=== PATIENT | female | born 2000 | race Caucasian/White ===

== ENCOUNTER 2022-11-17 16:15 | Outpatient (CLI) | payer OTHER ==
[2022-11-17 20:45] LABS: ESTIMATED AVERAGE GLUCOSE 97 mg/dL (70-100)
[2022-11-17 20:51] LABS: BASOPHILS % (AUTO) 0.3 %; EOSINOPHILS # (AUTO) 0.2 10^3/uL (0.0-0.7); EOSINOPHILS % (AUTO) 1.7 %; HCT - HEMATOCRIT 41.9 % (37.0-47.0); HGB - HEMOGLOBIN 13.5 g/dL (12.0-16.0); LYMPHOCYTES # (AUTO) 2.5 10^3/uL (1.5-3.5); LYMPHOCYTES % (AUTO) 20.5 %; MEAN CORPUSCULAR HEMOGLOBIN 30.6 pg (27.0-31.0); MEAN CORPUSCULAR HGB CONC 32.2 g/dL (32.0-36.0); MEAN PLATELET VOLUME 11.1 fL (7.9-10.8); MONOCYTES # (AUTO) 0.9 10^3/uL (0.0-1.0); MONOCYTES % (AUTO) 7.2 %; NEUTROPHILS # (AUTO) 8.6 10^3/uL (1.5-6.6); NEUTROPHILS % (AUTO) 69.8 %; PLT - PLATELET COUNT 292 10^3/uL (130-450); RED BLOOD COUNT 4.41 10^6/uL (4.20-5.40); RED CELL DISTRIBUTION WIDTH 12.4 % (12.0-15.0); WHITE BLOOD COUNT 12.4 x10^3/uL (4.8-10.8)
[2022-11-17 20:59] LABS: ALBUMIN 4.1 g/dL (3.2-5.5); ALBUMIN/GLOBULIN RATIO 1.3 (1.0-2.2); BILIRUBIN,TOTAL 0.3 mg/dL (0.2-1.0); CALCIUM 9.3 mg/dL (8.5-10.3); CREATININE 0.6 mg/dL (0.6-1.3); CRP - C-REACTIVE PROTEIN 3.3 mg/dL (<0.5); POTASSIUM 4.1 mmol/L (3.5-4.5); TOTAL PROTEIN 7.3 g/dL (6.4-8.9)
== END 2022-11-17 16:30 | disposition home or self-care (01) ==
LOC: LAB.N 16:15
PROVIDERS: ATTEND Registered Nurse
DX: M54.50 Low back pain, unspecified (principal); R10.11 Right upper quadrant pain; R10.9 Unspecified abdominal pain
CPT/HCPCS: 36415; 80053; 83036; 83690; 85025; 86140

== ENCOUNTER 2022-11-19 08:00 | Outpatient (CLI) | payer OTHER | END 2022-11-19 23:59 | disposition home or self-care (01) | LOC: LAB 08:00 | PROVIDERS: ATTEND Physician Assistant Medical | DX: M54.50 Low back pain, unspecified (principal) | CPT/HCPCS: 87086 ==

== ENCOUNTER 2023-01-19 15:53 | Emergency (ER) | payer OTHER ==
[2023-01-19 16:27] LABS: BASOPHILS % (AUTO) 0.3 %; EOSINOPHILS # (AUTO) 0.2 10^3/uL (0.0-0.7); EOSINOPHILS % (AUTO) 1.3 %; HCT - HEMATOCRIT 42.7 % (37.0-47.0); HGB - HEMOGLOBIN 13.9 g/dL (12.0-16.0); LYMPHOCYTES # (AUTO) 3.1 10^3/uL (1.5-3.5); LYMPHOCYTES % (AUTO) 21.6 %; MEAN CORPUSCULAR HEMOGLOBIN 30.4 pg (27.0-31.0); MEAN CORPUSCULAR HGB CONC 32.6 g/dL (32.0-36.0); MEAN CORPUSCULAR VOLUME 93.4 fL (81.0-99.0); MEAN PLATELET VOLUME 10.4 fL (7.9-10.8); MONOCYTES # (AUTO) 1.1 10^3/uL (0.0-1.0); MONOCYTES % (AUTO) 7.7 %; NEUTROPHILS # (AUTO) 9.8 10^3/uL (1.5-6.6); NEUTROPHILS % (AUTO) 68.6 %; PLT - PLATELET COUNT 300 10^3/uL (130-450); RED BLOOD COUNT 4.57 10^6/uL (4.20-5.40); RED CELL DISTRIBUTION WIDTH 12.3 % (12.0-15.0); WHITE BLOOD COUNT 14.3 x10^3/uL (4.8-10.8)
[2023-01-19 16:42] LABS: ALBUMIN 4.3 g/dL (3.2-5.5); ALBUMIN/GLOBULIN RATIO 1.5 (1.0-2.2); BILIRUBIN,TOTAL 0.3 mg/dL (0.2-1.0); CALCIUM 9.5 mg/dL (8.5-10.3); CREATININE 0.6 mg/dL (0.6-1.3); POTASSIUM 3.7 mmol/L (3.5-4.5); TOTAL PROTEIN 7.2 g/dL (6.4-8.9)
[2023-01-19 17:03] LABS: BILIRUBIN,URINE NEGATIVE (NEGATIVE); GLUCOSE, URINE (UA) NEGATIVE (NEGATIVE); KETONES,URINE (UA) NEGATIVE (NEGATIVE); LEUKOCYTE ESTERASE, URINE NEGATIVE (NEGATIVE); NITRITE,URINE NEGATIVE (NEGATIVE); OCCULT BLOOD,URINE NEGATIVE (NEGATIVE); PROTEIN,URINE NEGATIVE (NEGATIVE); UROBILINOGEN,URINE 0.2 (NORMAL) E.U./dL (NORMAL)
[2023-01-19 17:06] LABS: HCG UR QUAL NEGATIVE
[2023-01-19 17:06] LABS: CLARITY,URINE CLEAR (CLEAR)
--- NOTE | 2023-01-19 17:30 | ED Physician Documentation ---
History of Present Illness - Stated complaint Stated Complaint: - Chief complaint Chief Complaint: Abd Pain - History obtained from History obtained from: Patient - History of Present Illness Timing: Today Pain level max: 6 Pain level now: 5 - Additonal information Additional information: Patient is a 22-year-old female who presents to the emergency department with 2 to 3 days of right lower quadrant abdominal pain. She states she does not have any dysuria but when she flexes the muscles in her abdomen to strain to urinate or defecate that causes pain in the right lower quadrant. No nausea or vomiting. No fevers. No chills. Had COVID 1 month ago. Denies any possibility of . Has irregular menses. Review of Systems Constitutional: denies: Fever, Chills GI: denies: Nausea, Vomiting, Diarrhea : denies: Now EGA Skin: denies: Rash Musculoskeletal: denies: Neck pain, Back pain Neurologic: denies: Headache PD PAST MEDICAL HISTORY - Past Medical History Past Medical History: No - Past Surgical History Past Surgical History: No - Present Medications Home Medications: Ambulatory Orders Medication Instructions Recorded Confirmed HYDROcod/ACETAM 5/325 [[place] 5/325] 1 - 2 ea PO Q6H PRN #14 tablet 01/19/23 - Allergies Allergies/Adverse Reactions: Allergies Allergy/AdvReac Type Severity Reaction Status Date / Time No Known Drug Allergies Allergy Verified 01/19/23 16:12 - Social History Does the pt smoke?: No Smoking Status: Never smoker Does the pt drink ETOH?: Yes Does the pt have substance abuse?: No - Immunizations Immunizations are current?: Yes PD ED PE NORMAL - Vitals Vital signs reviewed: Yes - General General: Alert and oriented X 3, No acute distress - HEENT HEENT: PERRL, Moist mucous membranes - Neck Neck: Supple, no meningeal sign - Cardiac Cardiac: RRR, Strong equal pulses - Respiratory Respiratory: No respiratory distress, Clear bilaterally - Abdomen Abdomen: Soft, Non distended, Other (Tender to palpation right lower quadrant without peritoneal signs. Mild tenderness to McBurney's point. No rebound. No guarding. Negative psoas. Negative heeltap.) - Back Back: No spinal TTP - Derm Derm: Warm and dry - Extremities Extremities: No edema, No calf tenderness / cord - Neuro Neuro: Alert and oriented X 3 - Psych Psych: Normal mood, Normal affect Results - Vitals Vitals: Vital Signs - 24 hr 01/19/23 01/19/23 01/19/23 16:02 18:43 20:56 Temperature 37.0 C Heart Rate 68 71 78 Respiratory 17 16 18 Rate Blood Pressure 134/85 H 118/74 130/79 O2 Saturation 100 99 98 Oxygen O2 Source Room air - Labs Labs: Laboratory Tests 01/19/23 01/19/23 01/19/23 16:16 16:18 16:21 WBC 14.3 H RBC 4.57 Hgb 13.9 Hct 42.7 MCV 93.4 MCH 30.4 MCHC 32.6 RDW 12.3 Plt Count 300 MPV 10.4 Neut # (Auto) 9.8 H Lymph # (Auto) 3.1 Young # (Auto) 1.1 H Eos # (Auto) 0.2 Baso # (Auto) 0.0 Absolute Nucleated RBC 0.00 Nucleated RBC % 0.0 Sodium Potassium Chloride Carbon Dioxide Anion Gap BUN Creatinine Estimated GFR (MDRD) Glucose Calcium Total Bilirubin AST ALT Alkaline Phosphatase Total Protein Albumin Globulin Albumin/Globulin Ratio Lipase Urine Color YELLOW Urine Clarity CLEAR Urine pH 6.0 Ur Specific [place] <=1.005 Urine Protein NEGATIVE Urine Glucose (UA) NEGATIVE Urine Ketones NEGATIVE Urine Occult Blood NEGATIVE Urine Nitrite NEGATIVE Urine Bilirubin NEGATIVE Urine Urobilinogen 0.2 (NORMAL) Ur Leukocyte Esterase NEGATIVE Ur Microscopic Review NOT INDICATED Urine Culture Comments NOT INDICATED Urine HCG, Qual NEGATIVE 01/19/23 16:21 WBC RBC Hgb Hct MCV MCH MCHC RDW Plt Count MPV Neut # (Auto) Lymph # (Auto) Young # (Auto) Eos # (Auto) Baso # (Auto) Absolute Nucleated RBC Nucleated RBC % Sodium 138 Potassium 3.7 Chloride 104 Carbon Dioxide 29 Anion Gap 5.0 L BUN 10 Creatinine 0.6 Estimated GFR (MDRD) 125 Glucose 83 Calcium 9.5 Total Bilirubin 0.3 AST 16 ALT 14 Alkaline Phosphatase 98 Total Protein 7.2 Albumin 4.3 Globulin 2.9 Albumin/Globulin Ratio 1.5 Lipase 14 Urine Color Urine Clarity Urine pH Ur Specific [place] Urine Protein Urine Glucose (UA) Urine Ketones Urine Occult Blood Urine Nitrite Urine Bilirubin Urine Urobilinogen Ur Leukocyte Esterase Ur Microscopic Review Urine Culture Comments Urine HCG, Qual - Rads (name of study) CT abdomen pelvis Relevant Findings:: Final report received, See rad report Pelvic ultrasound Relevant Findings:: Final report received, See rad report PD Medical Decision Making - ED course Complexity details: reviewed results, re-evaluated patient, considered differential, d/w patient, d/w strategy planning consultant ED course: 22-year-old female with right-sided abdominal/pelvic pain. She has a 5 cm right-sided ovarian cyst. Ultrasound does not show any evidence of torsion. Pain well controlled in the emergency department. I did discuss the case with Dr. Webber, gynecology, recommends follow-up in the office and repeat ultrasound. Torsion precautions were given at bedside. We will prescribe pain medication for home. Patient counseled regarding signs and symptoms for which I believe and urgent re-evaluation would be necessary. Patient with good u nderstanding of and agreement to plan and is comfortable going home at this time This document was made in part using voice recognition software. While efforts are made to proofread this document, sound alike and grammatical errors may occur. Departure - Departure Disposition: Home, Self Care Clinical Impression: Ovarian cyst Qualifiers: Laterality: right Qualified Code(s): N83.201 - Unspecified ovarian cyst, right side Abdominal pain Qualifiers: Abdominal location: unspecified location Qualified Code(s): R10.9 - Unspecified abdominal pain Condition: Good Instructions: ED Abdominal Pain Female Non-Specific Abdominal Pain, ED Cyst Ovarian Follow-Up: your,doctor in 1 week [Other] [facility] [Provider Group] Prescriptions: HYDROcod/ACETAM 5/325 [[place] 5/325] 1 - 2 ea PO Q6H PRN #14 tablet PRN Reason: Pain Comments: Please follow-up with your doctor or gynecology for further care. You have a right-sided ovarian cyst, approximately 5 cm. It is recommended that you have a repeat ultrasound in 3 to 4 weeks to ensure resolution of the cyst. If you develop increasing pain, vomiting or other symptoms, please return for repeat evaluation. Your prescription was sent to [facility] in [place]. I am prescribing a short course of narcotic pain medication for you. These are potentially dangerous and addictive medications that should be used carefully. These medications may constipate you. Take an qwqd-cea-etxkmoe stool softener (docusate) twice daily with plenty of water while taking these medications. If you go 24 hours without a bowel movement, take [id number]-aoxehwj miralax, per package instructions. Do not drink or drive while taking these medications. If you received narcotic or sedating medications while in the emergency department, do not drive for 24 hours. Store this medication in a safe, secure place and out of reach of children. It is a violation of federal law to give or sell this medication to another person or to use in a manner other than prescribed. The ED will not refill narcotic prescriptions, including prescriptions lost or stolen. To dispose of unwanted medications: 1. [facility] at [address] in [place] has a medication drop box. They accept prescription medications (in pill form) Monday through Monday 9:00 a.m. to 5:00 p.m. 2. [facility] [employer] accepts prescription medications (in pill form only) for disposal year round. Call for more information. 3. Contact the [facility] for the next [facility] sponsored prescription drug collection event. , [phone], or [phone]; Forms: PCP List Discharge Date/Time: 01/19/23 20:55
[2023-01-19] MEDS ORDERED: iohexoL-300 100 ML VIAL IVP ONE (18:51)
--- NOTE | 2023-01-19 19:43 | CT Report ---
PROCEDURE: ABDOMEN/PELVIS W INDICATIONS: RLQ abd pain CONTRAST: omni 300 100ml TECHNIQUE: After the administration of intravenous contrast, 5 mm thick sections acquired from the diaphragms to the symphysis. 5 mm thick coronal and sagittal reformats were acquired. For radiation dose reducti on, the following was used: automated exposure control, adjustment of mA and/or kV according to roberto ent size. COMPARISON: None FINDINGS: Image quality: Excellent. Lung bases and heart: Unremarkable. Liver: No solid mass. Gallbladder and biliary tree: Spleen: No splenomegaly. Pancreas: No pancreatic ductal dilation. Adrenals: No adrenal nodule. Kidneys and ureters: No hydronephrosis. No renal cystic lesion which requires follow up. No solid mas s. Bowel and peritoneum: No bowel distension. No pathologic free fluid. Normal appendix Lymph nodes: No central or retroperitoneal adenopathy. Vessels: No infrarenal aortic aneurysm. PELVIS Reproductive organs: Prominent cystic lesion in the right ovary/adnexa measuring up to 4.9 cm. No sig nificant surrounding inflammatory changes. Trace amount of pelvic free fluid likely physiologic but p ossibly reactive in etiology. Bladder: No abnormal wall thickening, accounting for underdistension. Pelvic lymph nodes: No pelvic adenopathy by size criteria. Bones: No aggressive osseous abnormality. Other: No significant ventral or inguinal hernia. IMPRESSION: Prominent right ovarian/adnexal cysts measuring up to 4.9 cm without significant surrounding inflamma tory changes. Consider further evaluation with pelvic ultrasound given right lower quadrant abdominal pain. The appendix is normal. Otherwise, no acute abnormalities identified in the abdomen or pelvis. Reviewed by: Carlos Davis MD on 01/19/2023 7:42 PM PDT Approved by: Carlos Davis MD on 01/19/2023 7:42 PM PDT Station ID: [id number]
[2023-01-19] MEDS ORDERED: HYDROcod/ACETAM 5/325 MG TABLET PO STA (20:38)
[2023-01-19] MEDS ORDERED: HYDROcod/ACET 5/325 Prepack 4 PO STA (20:38)
--- NOTE | 2023-01-19 20:41 | Ultrasound Report ---
PROCEDURE: Pelvic w/Doppler Complete INDICATIONS: 5 cm right-sided ovarian cyst TECHNIQUE: Real-time scanning was performed of the pelvic organs, with image documentation. COMPARISON: None. FINDINGS: Uterus: Uterus is anteverted and normal in size at 7.0 x 3.2 x 3.6 cm. The myometrium is homogeneou s. The endometrium measures 15 mm in combined thickness. Ovaries: The right ovary measures 5.6 x 3.9 x 5.1 cm, with a calculated ovarian volume of 58 cc. Th e left ovary measures 2.4 x 1.5 x 2.6 cm, with a calculated ovarian volume of 5 cc. A simple appeari ng cyst is present in the right ovary measuring 4.2 x 3.1 x 4.5 cm. Blood flow is visualized within b oth ovaries by Doppler imaging. Other: No pathologic free abdominal or pelvic fluid. IMPRESSION: 1. A 4.5 cm simple appearing cyst is present in the right ovary. 2. Unremarkable sonographic appearance of the left ovary. Reviewed by: Darshan Berger MD on 01/19/2023 8:40 PM PDT Approved by: Darshan Berger MD on 01/19/2023 8:40 PM PDT Station ID: [id number]
[2023-01-19 21:04] VITALS: BP 130/79; O2SAT 98
== END 2023-01-19 20:55 | disposition home or self-care (01) ==
LOC: ED 15:53
DX: N83.201 Unspecified ovarian cyst, right side (principal)
CPT/HCPCS: 36415; 74177; 76856; 80053; 81003; 81025; 83690; 85025; 93975; 99284; A9270; Q9967; 81001; 87086

== ENCOUNTER 2023-03-31 09:41 | Outpatient (CLI) | payer OTHER ==
--- NOTE | 2023-03-31 19:51 | Ultrasound Report ---
PROCEDURE: Pelvic w/Transvaginal INDICATIONS: OVARIAN CYST TECHNIQUE: Real-time scanning was performed of the pelvic organs, with image documentation. Additional endovagi nal scanning was necessary due to incomplete visualization of the adnexal and endometrial structures by transabdominal scanning. COMPARISON: Pelvic ultrasound 01/19/2023. CT abdomen pelvis 01/19/2023. FINDINGS: Uterus: Uterus is anteverted and normal in size at 7.7 x 3.7 x 3.3 cm. The myometrium is homogeneou s. The endometrium measures 9 mm in combined thickness. No fibroids seen. Ovaries: The right ovary measures 2.1 x 1.8 x 1.7 cm, with a calculated ovarian volume of 3 cc. The left ovary measures 3.6 x 2.7 x 2.3 cm, with a calculated ovarian volume of 11.5 cc. The ovaries lewis ve a normal sonographic appearance. Less than 12 follicles can be seen in each ovary. Dominant left ovarian follicle measuring 1.8 cm right ovarian cyst is resolved. No adnexal masses are seen. No cyst ic lesions measuring greater than 3 cm. Other: Fluid in the pelvic cul-de-sac. IMPRESSION: 1. Right ovarian cyst is resolved. 2. Endometrium measures 9 mm. Reviewed by: Jose L Cummings MD on 03/31/2023 7:50 PM PST Approved by: Jose L Cummings MD on 03/31/2023 7:50 PM PST Station ID: [id number]
== END 2023-03-31 09:42 | disposition home or self-care (01) ==
LOC: DI 09:41
PROVIDERS: ATTEND Obstetrics & Gynecology
DX: N83.291 Other ovarian cyst, right side (principal)

== ENCOUNTER 2023-10-31 08:00 | Outpatient (CLI) | payer OTHER ==
[2023-10-31 16:01] LABS: BILIRUBIN,URINE NEGATIVE (NEGATIVE); GLUCOSE, URINE (UA) NEGATIVE (NEGATIVE); KETONES,URINE (UA) NEGATIVE (NEGATIVE); LEUKOCYTE ESTERASE, URINE SMALL (NEGATIVE); NITRITE,URINE NEGATIVE (NEGATIVE); OCCULT BLOOD,URINE NEGATIVE (NEGATIVE); PROTEIN,URINE NEGATIVE (NEGATIVE); UROBILINOGEN,URINE 0.2 (NORMAL) E.U./dL (NORMAL)
[2023-10-31 16:03] LABS: CLARITY,URINE SL. CLOUDY (CLEAR)
[2023-10-31 16:30] LABS: BACTERIA,URINE Moderate /HPF (None Seen); RBC,URINE 0-5 /HPF (0-5); SQUAMOUS EPITHELIAL CELL,UR MANY Squamous (<= Few)
[2023-10-31 16:31] LABS: MUCUS,URINE Moderate Strands
== END 2023-10-31 23:59 | disposition home or self-care (01) ==
LOC: LAB 08:00
PROVIDERS: ATTEND Obstetrics & Gynecology
DX: Z34.90 Encounter for supervision of normal pregnancy, unspecified, unspecified trimester (principal)
CPT/HCPCS: 81001; 81003; 87086

== ENCOUNTER 2023-11-10 12:15 | Outpatient (CLI) | payer OTHER ==
[2023-11-10 18:13] LABS: BASOPHILS % (AUTO) 0.3 %; EOSINOPHILS # (AUTO) 0.1 10^3/uL (0.0-0.7); EOSINOPHILS % (AUTO) 0.9 %; HGB - HEMOGLOBIN 13.4 g/dL (12.0-16.0); LYMPHOCYTES # (AUTO) 2.4 10^3/uL (1.5-3.5); LYMPHOCYTES % (AUTO) 20.8 %; MEAN CORPUSCULAR HEMOGLOBIN 30.3 pg (27.0-31.0); MEAN CORPUSCULAR HGB CONC 31.9 g/dL (32.0-36.0); MEAN PLATELET VOLUME 11.5 fL (7.9-10.8); MONOCYTES # (AUTO) 0.7 10^3/uL (0.0-1.0); MONOCYTES % (AUTO) 5.6 %; NEUTROPHILS # (AUTO) 8.4 10^3/uL (1.5-6.6); NEUTROPHILS % (AUTO) 72.1 %; PLT - PLATELET COUNT 263 10^3/uL (130-450); RED BLOOD COUNT 4.42 10^6/uL (4.20-5.40); WHITE BLOOD COUNT 11.7 x10^3/uL (4.8-10.8)
[2023-11-12 06:08] LABS: HBsAG SCREEN Negative (Negative); HIV SCREEN 4TH GENERATION Non Reactive (Non Reactive)
[2023-11-12 09:08] LABS: VARICELLA-ZOSTER AB IGG 190 index (Immune >165)
[2023-11-14 02:08] LABS: HCV AB Non Reactive (Non Reactive)
[2023-11-14 03:10] LABS: RPR Non Reactive (Non Reactive)
== END 2023-11-10 12:16 | disposition home or self-care (01) ==
LOC: LAB.N 12:15
PROVIDERS: ATTEND Obstetrics & Gynecology
DX: Z34.90 Encounter for supervision of normal pregnancy, unspecified, unspecified trimester (principal)
CPT/HCPCS: 36415; 85025; 86592; 86762; 86787; 86803; 86850; 86900; 86901; 87340; 87389

== ENCOUNTER 2023-11-22 12:24 | Emergency (ER) | payer OTHER ==
--- NOTE | 2023-11-22 12:33 | ED Physician Documentation ---
History of Present Illness - Stated complaint Stated Complaint: VOMITING,NAUSEA,HOLL[place] PD PAST MEDICAL HISTORY - Past Surgical History Past Surgical History: No - Present Medications Home Medications: Ambulatory Orders Medication Instructions Recorded Confirmed HYDROcod/ACETAM 5/325 [[place] 5/325] 1 - 2 ea PO Q6H PRN #14 tablet 01/19/23 - Allergies Allergies/Adverse Reactions: Allergies Allergy/AdvReac Type Severity Reaction Status Date / Time No Known Drug Allergies Allergy Verified 01/19/23 16:12 - Social History Does the pt smoke?: No Smoking Status: Never smoker Does the pt drink ETOH?: Yes Does the pt have substance abuse?: No - Immunizations Immunizations are current?: Yes Results - Vitals Vitals: Oxygen O2 Source Room air
--- NOTE | 2023-11-22 12:59 | ED Physician Documentation ---
History of Present Illness - Stated complaint Stated Complaint: VOMITING,NAUSEA,HO[place] - Chief complaint Chief Complaint: Abd Pain - History obtained from History obtained from: Patient - Additonal information Additional information: G1 at 10 weeks has had problems with nausea throughout this . She has been on B6. Vomiting since last night with no significant abdominal pain, no diarrhea, and no cramping, bleeding, nor fluid loss. PD PAST MEDICAL HISTORY - Past Medical History Past Medical History: No - Past Surgical History Past Surgical History: No - Present Medications Home Medications: Ambulatory Orders Medication Instructions Recorded Confirmed HYDROcod/ACETAM 5/325 [[place] 5/325] 1 - 2 ea PO Q6H PRN #14 tablet 01/19/23 Metoclopramide [Reglan] 10 mg PO Q6H PRN #20 tablet 11/22/23 - Allergies Allergies/Adverse Reactions: Allergies Allergy/AdvReac Type Severity Reaction Status Date / Time No Known Drug Allergies Allergy Verified 11/22/23 12:43 - Social History Does the pt smoke?: No Smoking Status: Never smoker Does the pt drink ETOH?: No Does the pt have substance abuse?: No - Immunizations Immunizations are current?: Yes - POLST Patient has POLST: No PD ED PE NORMAL - Vitals Vital signs reviewed: Yes - General General: Alert and oriented X 3, No acute distress - Abdomen Abdomen: Normal bowel sounds, Soft, Other (Bedside ultrasound shows single live intrauterine but some obscuration due to overlying bowel gas so could not check heart tones. There was a motion though.) - Neuro Neuro: Alert and oriented X 3 Results - Vitals Vitals: Vital Signs - 24 hr 11/22/23 12:34 Temperature 36.7 C Heart Rate 96 Respiratory 16 Rate Blood Pressure 133/85 H O2 Saturation 100 Oxygen O2 Source Room air - Labs Labs: Laboratory Tests 11/22/23 13:10 Sodium 135 Potassium 3.4 L Chloride 102 Carbon Dioxide 26 Anion Gap 7.0 BUN 6 Creatinine 0.5 L Estimated GFR (MDRD) 153 Glucose 93 Calcium 9.6 Total Bilirubin 0.4 AST 13 ALT 13 Alkaline Phosphatase 64 Total Protein 8.2 Albumin 4.4 Globulin 3.8 Albumin/Globulin Ratio 1.2 Lipase < 10 L PD Medical Decision Making - ED course ED course: 23-year-old G1 with vomiting in . Nothing in the history or physical to suggest infectious illness or other cause of vomiting. After the administration of IV fluids and Reglan she felt much better and passed p.o. challenge. CMP was unremarkable. Departure - Departure Disposition: 01 Home, Self Care Clinical Impression: Hyperemesis gravidarum Condition: Stable Instructions: ED Preg Morning Sickness Prescriptions: Metoclopramide [Reglan] 10 mg PO Q6H PRN #20 tablet PRN Reason: nausea or headache Comments: I sent your prescription electronically to the [facility] in [place]. Return anytime if worsening and follow-up with your OB as per routine for further evaluation and treatment. Forms: PCP List
[2023-11-22] MEDS: SODIUM CHLORIDE 0.9% 1,000 ML IV STA ×2 (13:01→13:07)
[2023-11-22] MEDS: METOCLOPRAMIDE 10 MG/2 ML VIAL IVP STA (13:10)
[2023-11-22 13:33] LABS: ALBUMIN 4.4 g/dL (3.2-5.5); ALBUMIN/GLOBULIN RATIO 1.2 (1.0-2.2); ALKALINE PHOSPHATASE 64 IU/L (42-121); ALT ALANINE AMINOTRANSFERASE 13 IU/L (10-60); AST ASPARTATE AMINOTRANSFERASE 13 IU/L (10-42); BILIRUBIN,TOTAL 0.4 mg/dL (0.2-1.0); BUN - BLOOD UREA NITROGEN 6 mg/dL (6-20); CALCIUM 9.6 mg/dL (8.5-10.3); CARBON DIOXIDE - CO2 26 mmol/L (21-32); CHLORIDE 102 mmol/L (101-111); CREATININE 0.5 mg/dL (0.6-1.3); GFR - MDRD 153 (>89); GLUCOSE 93 mg/dL (74-104); POTASSIUM 3.4 mmol/L (3.5-4.5); SODIUM 135 mmol/L (135-145); TOTAL PROTEIN 8.2 g/dL (6.4-8.9)
[2023-11-22 13:34] LABS: LIPASE < 10 U/L (11-82)
[2023-11-22 13:57] LABS: BILIRUBIN,URINE NEGATIVE (NEGATIVE); GLUCOSE, URINE (UA) NEGATIVE (NEGATIVE); KETONES,URINE (UA) 40 mg/dL (NEGATIVE); LEUKOCYTE ESTERASE, URINE SMALL (NEGATIVE); NITRITE,URINE NEGATIVE (NEGATIVE); OCCULT BLOOD,URINE NEGATIVE (NEGATIVE); PH,URINE 6.5 PH (5.0-7.5); PROTEIN,URINE NEGATIVE (NEGATIVE); UROBILINOGEN,URINE 0.2 (NORMAL) E.U./dL (NORMAL)
[2023-11-22 13:59] LABS: CLARITY,URINE SL. CLOUDY (CLEAR)
[2023-11-22 14:05] LABS: BACTERIA,URINE Moderate /HPF (None Seen); RBC,URINE 0-5 /HPF (0-5); SQUAMOUS EPITHELIAL CELL,UR MANY Squamous (<= Few)
[2023-11-22 14:20] VITALS: BP 109/63; O2SAT 99
== END 2023-11-22 14:25 | disposition home or self-care (01) ==
LOC: ED 12:24
DX: O21.0 Mild hyperemesis gravidarum (principal); Z3A.10 10 weeks gestation of pregnancy
CPT/HCPCS: 36415; 80053; 81001; 83690; 96361; 96374; 99283; J2765; 81003; 85025; 87086

== ENCOUNTER 2023-12-08 08:00 | Outpatient (CLI) | payer OTHER ==
[2023-12-08 22:22] LABS: CHLAMYDIA TRACHOMATIS DNA NEGATIVE (NEGATIVE); NEISSERIA GONORRHOEAE DNA NEGATIVE (NEGATIVE); TRICHOMONAS VAGINALIS DNA NEGATIVE (NEGATIVE)
== END 2023-12-08 23:59 | disposition home or self-care (01) ==
LOC: LAB.WC 08:00
PROVIDERS: ATTEND Nurse Practitioner
DX: Z11.3 Encounter for screening for infections with a predominantly sexual mode of transmission (principal)
CPT/HCPCS: 87491; 87591; 87661

== ENCOUNTER 2024-06-04 09:08 | Inpatient (IN) ==
[2024-06-04] MEDS ORDERED: LABETALOL 20 MG/4 ML SYRINGE IVP PRN ×3 (09:15)
[2024-06-04] MEDS ORDERED: CARBOPROST TROMETHAMINE 250 MCG/ML VIAL IM PRN (09:15)
[2024-06-04] MEDS ORDERED: METHYLERGONOVINE 0.2 MG/ML VIAL IM PRN (09:15)
[2024-06-04] MEDS ORDERED: lidocaine 1% 20 ML MDV ID PRN (09:15)
[2024-06-04] MEDS ORDERED: OXYTOCIN 10 UNIT/ML VIAL IM PRN (09:15)
[2024-06-04] MEDS ORDERED: OXYTOCIN/SODIUM CHLORIDE 500 ML IV PRN (09:15)
[2024-06-04] MEDS ORDERED: fentaNYL 100 MCG/2 ML VIAL IVP PRN (09:15)
[2024-06-04] MEDS ORDERED: miSOPROStoL 200 MCG TABLET BC PRN (09:15)
[2024-06-04] MEDS ORDERED: NIFEdipine 10 MG CAPSULE PO PRN (09:15)
[2024-06-04] MEDS ORDERED: hydrALAZINE INJ 20 MG/ML VIAL IVP PRN ×2 (09:15)
[2024-06-04 10:35] LABS: BASOPHILS % (AUTO) 0.3 %; EOSINOPHILS # (AUTO) 0.1 10^3/uL (0.0-0.7); EOSINOPHILS % (AUTO) 0.6 %; HCT - HEMATOCRIT 38.8 % (37.0-47.0); HGB - HEMOGLOBIN 12.7 g/dL (12.0-16.0); LYMPHOCYTES # (AUTO) 2.5 10^3/uL (1.5-3.5); LYMPHOCYTES % (AUTO) 18.3 %; MEAN CORPUSCULAR HEMOGLOBIN 30.6 pg (27.0-31.0); MEAN CORPUSCULAR HGB CONC 32.7 g/dL (32.0-36.0); MEAN CORPUSCULAR VOLUME 93.5 fL (81.0-99.0); MEAN PLATELET VOLUME 12.1 fL (7.9-10.8); MONOCYTES # (AUTO) 0.9 10^3/uL (0.0-1.0); MONOCYTES % (AUTO) 6.2 %; NEUTROPHILS # (AUTO) 10.1 10^3/uL (1.5-6.6); PLT - PLATELET COUNT 195 10^3/uL (130-450); RED BLOOD COUNT 4.15 10^6/uL (4.20-5.40); RED CELL DISTRIBUTION WIDTH 13.2 % (12.0-15.0); WHITE BLOOD COUNT 13.7 x10^3/uL (4.8-10.8)
[2024-06-04 10:48] LABS: CREATININE,URINE 30.8 mg/dL; PROTEIN/CREATININE RATIO,URINE 0.1 (<=0.2)
[2024-06-04 10:50] LABS: ALBUMIN 3.5 g/dL (3.2-5.5); ALBUMIN/GLOBULIN RATIO 1.1 (1.0-2.2); BILIRUBIN,TOTAL 0.3 mg/dL (0.2-1.0); CALCIUM 8.7 mg/dL (8.5-10.3); CREATININE 0.5 mg/dL (0.6-1.3); POTASSIUM 3.7 mmol/L (3.5-4.5); TOTAL PROTEIN 6.7 g/dL (6.4-8.9)
[2024-06-04] MEDS: miSOPROStoL 100 MCG TABLET BC SCH (11:20)
--- NOTE | 2024-06-04 12:08 | HISTORY & PHYSICAL EXAMINATION ---
Admit History Smoking Status: Never smoker Other Maternal History Other Maternal History: HPI: This 24 yo @ 37+5 weeks by LMP and confirmed by 11 week ultrasound. She is here for medical induction of labor for gestational hypertension. LDASA initiated after initial OB visit. Her urine MTP has not been diagnosable for preeclampsia as of the time of her admission. She had understood the ACOG recommendation for IOL at 37 weeks gestation but felt better delaying until 38 weeks as her BP was only intermittently elevated and she had no diagnosis of preeclampsia. She had called me last night with blood pressures >145/90 that were more worrisome to her and desired to move up her IOL. She has never endorsed persistent headache, changes to vision, concerning edema or RUQ. Upon arrival her cervix was unchanged from clinic (1/40%/-3, and vertex with intact membranes). She has been a patient of [facility] care for the duration of her which has remained uncomplicated with the exception of obesity and gestational hypertension. ROS: No Headache, visual changes or right upper quadrant abdominal pain. Denies significant N/V. Denies urinary urgency or dysuria. All other symptoms reviewed and were negative except per HPI. In the event of an emergency, accepts the administration of blood products. Admission BP:130/82 Labs: H&H: 12.7/38.8, PLT: 195, AST/ ALT: 15/8, Serum Creatinine:0.5, Urine PCR/MTP: 0.1 Last u/s EFW: 05/27/2024: 2772g/ 33% @ 36+0 weeks Total maternal weight gain: 3# loss OB Hx: G1: Current Medical Hx: No significant, benign breast mass Surgical Hx: None Social Hx: Monogamous with male partner. Denies current use of alcohol or tobacco, marijuana or other recreational drugs. Reports that she is safe in current relationship. Family Hx: Denies family history of congenital anomalies, Cystic Fibrosis or chromosomal abnormalities LMP: 09/14/2023 RISA by LMP: 06/20/2024 US: @ 11.5wks 06/22/2024 Final RISA: 06/20/2024 FOB: Mathew. Sex: Male - Abe PROBLEMS: Elevated blood pressure w/o the diagnosis of HTN. -Pre-E labs negative. BP check scheduled 05/09 Allergies NKDA/ pineapple RX: Aspirin, Tums, Reglan, Pre- Weight: 222.4 BMI: 38.31 Blood type: O+ Rh: Positive Antibody: Negative CBC: PLT 263 HCT 42.0 HGB 13.4 RUB: Immune VZV: Immune HBsAg: Negative HepC: NR RPR/AB-EIA: NR HIV: NR PAP:05/2023 - normal GC/CT: neg HSV:denies in self and partner Genetic testing: Desires quad screen-ordered Covid: Flu: 02/27/2024 FAS: Placenta: Posterior, no previa Cord: 3VC RADHA: 17.3cm EFW: 516.3g ; 74%tile 50gm OGCT: 110 TDAP: 04/01/2024 Breast Pump: 04/01/2024 Antibody screen: 3rd trimester H/H PLT 219 HCT 38.0 HGB 12.1 3rd trimester RPR: NR GBS: negative Delivery plan: MOD: Anticipate Contraception: NFP Physical exam: Normocephalic, atraumatic No increased work of breathing Abdomen gravid, soft, nontender. EFW 3200 FHR baseline 140, moderate variability, + accelerations, no decelerations Irregular, non-painful contractions. Soft uterine resting tone. SVE 1/40%/-3, intact, vertex Bilateral LE's trace edema Mood is good. Assessment: 24 yo @ 37+5 weeks gestation by 11 wk U/S Gestational Hypertension Obesity complicating FHR 140 Cat I GBS NEG Plan: Admit to [facility] for induction of labor Baseline PreE labs (CMP and urine MTP) and physical exam Blue preeclamptic precautions bracelet to be worn by unit protocol. Preinduction cervical ripening 50mcg misoprostol buccal q 4 hours. As contractions become painful, notable cervical change or other indication to change cervical ripening agent or transition to Continuous monitoring Support maternal requests for pain management including hydrotherapy, nitrous, and epidural PRN Maternal Request. Will consult semiconductor processor OBGYN regarding plan of care and adjust based on recommendation. Anticipate . HPI Current : Vital Signs Temperature 36.8 C 06/04/24 09:23 Meds/Allgy Home Medications Ambulatory Orders Medication Instructions Recorded Confirmed metoclopramide HCl 10 mg tablet 10 mg PO Q6H PRN nausea or 11/22/23 06/04/24 headache #20 tabs vitamins no.159-iron 1 tab PO DAILY 02/27/24 06/04/24 fumarate 28 mg-folic acid 800 mcg tablet ( Vitamin) aspirin 81 mg tablet,delayed 81 mg PO QDAY 03/19/24 06/04/24 release (Adult Aspirin Regimen) calcium carbonate (Tums) 300 mg PO BID 03/19/24 06/04/24 famotidine 20 mg tablet (Pepcid) 10 mg PO DAILY 06/04/24 06/04/24 Allergies Allergies Allergy/AdvReac Type Severity Reaction Status Date / Time pineapple Allergy Severe Rash Verified 05/30/24 14:40 PFSH Active Problems All Active Problems induced hypertension (Acute) Encounter for screening for Streptococcus B (Acute) Normal in second trimester (Acute) Migraines (Acute) Medical History Medical History Elevated blood pressure reading without diagnosis of hypertension Surgical History Surgical History H/O eye surgery Family History Family History Father High blood pressure Maternal grandmother Breast cancer Maternal grandfather Colon cancer Social History Social History Smoking Status: Never smoker Do you dip or chew tobacco?: No Do you vape?: No Do you feel safe in your home environment?: Yes Suffered physical, verbal, emotional, or financial abuse?: No History of Abuse: No Frequency: Occasional Are you sexually active?: No POLST Patient has POLST: No Physical Abdominal Exam Vital Signs: Temp 36.8 C 06/04/24 09:23 Plan for Labor Plan For Labor I expect patient to be DC'd or transferred within 96 hours.: Yes Conclusion/Plan Lab Results 06/04/24 09:20 06/04/24 09:20
--- NOTE | 2024-06-04 16:04 | PHARMACY PROGRESS NOTE ---
Best Possible Medication History Admit Date and Time: 06/04/24 [id number] Home Medications Medication Instructions Recorded Confirmed Type metoclopramide HCl 10 mg tablet 10 mg PO Q6H PRN nausea or 11/22/23 06/04/24 Rx headache #20 tabs vitamins no.159-iron 1 tab PO DAILY 02/27/24 06/04/24 History fumarate 28 mg-folic acid 800 mcg tablet ( Vitamin) aspirin 81 mg tablet,delayed 81 mg PO QDAY 03/19/24 06/04/24 History release (Adult Aspirin Regimen) calcium carbonate (Tums) 300 mg PO BID 03/19/24 06/04/24 History famotidine 20 mg tablet (Pepcid) 10 mg PO DAILY 06/04/24 06/04/24 History Processed by: Nursing (aviation technician aircraft confirmed medications with nursing staff) Medications reviewed in ED?: No Medication History completed: Yes Patient Interview: Completed Secondary Source(s): Insurance records [facility] Statement: As the person ultimately responsible for medication therapy, providers are able to order a medication from an existing home medication list in [facility] via the "Reconcile Routine" prior to Confirmation of that medication by lab support technician. Such practice is discouraged except when the physician, in their clinical judgment, deems that a medical need exists for a medication without regard to previous use.
--- NOTE | 2024-06-04 16:11 | ANESTHESIA PROCEDURE NOTE ---
Pre-Anesthesia VS, & Labs Diagnosis Surgical Diagnosis:: 37+5 weeks, , IOL for gestational HTN Procedure Procedure: placement of labor epidural when desired Vitals Vital Signs: Temp 36.8 C 06/04/24 09:23 Height (in): 5 ft 3 in Weight (kg): 102 kg Body Mass Index: 39.8 BMI Classification: Obese NPO NPO: Other (currently taking PO; will be clears only when epidural is placed) Is Patient ?: Yes Estimated Due Date:: 06/05/24 Lab Results Current Lab Results: Laboratory Tests 06/04/24 09:20: WBC 13.7 H, RBC 4.15 L, Hgb 12.7, Hct 38.8, MCV 93.5, MCH 30.6, MCHC 32.7, RDW 13.2, Plt Count 195, MPV 12.1 H, Neut # (Auto) 10.1 H, Lymph # (Auto) 2.5, [place] # (Auto) 0.9, Eos # (Auto) 0.1, Baso # (Auto) 0.0, Absolute Nucleated RBC 0.00, Nucleated RBC % 0.0, Sodium 135, Potassium 3.7, Chloride 106, Carbon Dioxide 20 L, Anion Gap 9.0, BUN 8, Creatinine 0.5 L, Estimated GFR (MDRD) 152, Glucose 109 H, Calcium 8.7, Total Bilirubin 0.3, AST 15, ALT 8 L, A lkaline Phosphatase 125 H, Total Protein 6.7, Albumin 3.5, Globulin 3.2, Albumin/Globulin Ratio 1.1, Blood Type O POSITIVE, Antibody Screen NEGATIVE Lab results reviewed: Yes 06/04/24 09:20 06/04/24 09:20 Meds/Allgy Home Medications Ambulatory Orders Medication Instructions Recorded Confirmed metoclopramide HCl 10 mg tablet 10 mg PO Q6H PRN nausea or 11/22/23 06/04/24 headache #20 tabs vitamins no.159-iron 1 tab PO DAILY 02/27/24 06/04/24 fumarate 28 mg-folic acid 800 mcg tablet ( Vitamin) aspirin 81 mg tablet,delayed 81 mg PO QDAY 03/19/24 06/04/24 release (Adult Aspirin Regimen) calcium carbonate (Tums) 300 mg PO BID 03/19/24 06/04/24 famotidine 20 mg tablet (Pepcid) 10 mg PO DAILY 06/04/24 06/04/24 Allergies Allergies Allergy/AdvReac Type Severity Reaction Status Date / Time pineapple Allergy Severe Rash Verified 05/30/24 14:40 PFSH Active Problems All Active Problems induced hypertension (Acute) Encounter for screening for Streptococcus B (Acute) Normal in second trimester (Acute) Migraines (Acute) Medical History Medical History Elevated blood pressure reading without diagnosis of hypertension Surgical History Surgical History H/O eye surgery Family History Family History Father High blood pressure Maternal grandmother Breast cancer Maternal grandfather Colon cancer Social History Social History Smoking Status: Never smoker Do you dip or chew tobacco?: No Do you vape?: No Do you feel safe in your home environment?: Yes Suffered physical, verbal, emotional, or financial abuse?: No History of Abuse: No Frequency: Occasional Are you sexually active?: No POLST Patient has POLST: No POLST Status: Full Code Anesthesia Exam (Expanded) Exam General: Alert and No acute distress Dental: WNL Mouth Openin Fingerbreadth Neck Mobility: Normal Mallampati classification: II Thyromental Distance: 4-6 cm Plan Plan Anesthesia Type: Epidural Consent for Procedure(s) Verified and Reviewed: Yes Code Status: Attempt Resuscitation ASA Classification ASA classification: 2-Mild systemic disease Is this case an emergency?: No
[2024-06-04] MEDS: LACTATED RINGERS 1,000 ML IV ONE (19:35)
[2024-06-04] MEDS: SODIUM CHLORIDE FLUSH 0.9% 10 ML SYRINGE IVP PRN (19:38)
--- NOTE | 2024-06-04 21:00 | PROVIDER PROGRESS NOTE ---
Subjective Prog Note Date Prog Note Date: 06/04/24 Prog Note Time: 20:55 Subjective Subjective: Doing well. Category I FHT. No headaches, changes to vision or RUQ pain. Trace edema bilateral extremities. Majority of BP WNL. Occasional elevated pressure but not above 150/100. Dave intermittently, some mild discomfort but talking through contractions. No leaking or bleeding. Reviewed no indications for SVE at this time. RN or CNM will reassess as indicated. Discussed continuing misoprostol x 24 hours if not contraindicated. Reviewed other options for cervical ripening including CRB. Decline CRB at this time and would prefer to continue with misoprostol. Current Medications Current Medications Current Medications: Current Medications Generic Name Dose Route Start Last Admin Trade Name Freq PRN Reason Stop Dose Admin Carboprost Tromethamine 250 mcg 06/04/24 09:15 Carboprost Tromethamine 250 Mcg/Ml Vial IM 06/09/24 09:15 Q15M PRN Step 4: Hemorrhage protocol Famotidine 10 mg 06/04/24 12:46 Famotidine 20 Mg Tablet PO BID PRN NEEDED PER PROVIDER ORDERS Fentanyl 50 mcg 06/04/24 09:15 Fentanyl 100 Mcg/2 Ml Vial IVP Q1H PRN Severe Pain (Level 7-10) Hydralazine HCl 5 - 20 mg 06/04/24 09:15 Hydralazine Inj 20 Mg/Ml Vial IVP Q20M PRN SBP >160 or DBP >110 Protocol Hydralazine HCl 10 mg 06/04/24 09:15 Hydralazine Inj 20 Mg/Ml Vial IVP 06/09/24 09:15 .ONCE PRN Step 9 of Labetalol protocol Protocol Lactated Ringer's 1,000 mls @ 100 mls/hr 06/04/24 09:15 Lr IV .Q10H PRN Save for active labor Oxytocin/Sodium Chloride 500 mls @ 999 mls/hr 06/04/24 09:15 Pitocin/Sodium Chloride IV 06/09/24 09:15 PRN PRN POST- HEMORR PREVENTION Protocol 999 MILLIUNIT/MIN Tranexamic Acid 1,000 mg in 100 mls @ 600 mls/hr 06/04/24 09:15 Tranexamic 1,000 Mg/100ml-Nacl IV 06/09/24 09:15 .ONCE PRN EBL >1200mL and within 3hr Labetalol HCl 20 - 80 mg 06/04/24 09:15 Labetalol 20 Mg/4 Ml Syringe IVP Q10M PRN SBP >160 or DBP >110 Protocol Labetalol HCl 20 mg 06/04/24 09:15 Labetalol 20 Mg/4 Ml Syringe IVP 06/09/24 09:15 .ONCE PRN Step 9 of nifedipine protocol Protocol Labetalol HCl 40 mg 06/04/24 09:15 Labetalol 20 Mg/4 Ml Syringe IVP 06/09/24 09:15 .ONCE PRN Step 9 of hydrALAZine protocol Protocol Lidocaine HCl 20 ml 06/04/24 09:15 Lidocaine 1% 20 Ml Mdv ID 06/09/24 09:15 .ONCE PRN PERINEAL REPAIR Methylergonovine Maleate 0.2 mg 06/04/24 09:15 Methylergonovine 0.2 Mg/Ml Vial IM 06/09/24 09:15 .ONCE PRN Step 2: Hemorrhage protocol Misoprostol 800 mcg 06/04/24 09:15 Misoprostol 200 Mcg Tablet BC 06/09/24 09:15 .ONCE PRN Step 3: Hemorrhage protocol Misoprostol 50 mcg 06/04/24 12:00 06/04/24 19:28 Misoprostol 100 Mcg Tablet BC 50 mcg Q4H POLINA Administration Nifedipine 10 - 20 mg 06/04/24 09:15 Nifedipine 10 Mg Capsule PO Q20M PRN SBP >160 or DBP >110 Protocol Ondansetron HCl 4 mg 06/04/24 09:15 Ondansetron 4 Mg/2 Ml Vial IVP Q4HR PRN Nausea / Vomiting Oxytocin 10 unit 06/04/24 09:15 Oxytocin 10 Unit/Ml Vial IM 06/09/24 09:15 .ONCE PRN Step one: If no IV access Sodium Chloride 10 ml 06/04/24 09:15 06/04/24 19:38 Sodium Chloride Flush 0.9% 10 Ml Syringe IVP 10 ml PRN PRN Administration NEEDED PER PROVIDER ORDERS Objective Vital Signs/Intake & Output Intake & Output: Intake & Output 06/01/24 06/02/24 06/03/24 06/04/24 23:59 23:59 23:59 23:59 Weight (kg) 224 lb 13.944 oz Lab Results 06/04/24 09:20 06/04/24 09:20 Other Labs: Lab Results x24hrs 06/04/24 Range/Units 09:20 WBC 13.7 H (4.8-10.8) x10^3/uL RBC 4.15 L (4.20-5.40) 10^6/uL Hgb 12.7 (12.0-16.0) g/dL Hct 38.8 (37.0-47.0) % MCV 93.5 (81.0-99.0) fL MCH 30.6 (27.0-31.0) pg MCHC 32.7 (32.0-36.0) g/dL RDW 13.2 (12.0-15.0) % Plt Count 195 (130-450) 10^3/uL MPV 12.1 H (7.9-10.8) fL Neut # (Auto) 10.1 H (1.5-6.6) 10^3/uL Lymph # (Auto) 2.5 (1.5-3.5) 10^3/uL Schleicher # (Auto) 0.9 (0.0-1.0) 10^3/uL Eos # (Auto) 0.1 (0.0-0.7) 10^3/uL Baso # (Auto) 0.0 (0.0-0.1) 10^3/uL Absolute Nucleated RBC 0.00 x10^3/uL Nucleated RBC % 0.0 /100WBC Sodium 135 (135-145) mmol/L Potassium 3.7 (3.5-4.5) mmol/L Chloride 106 (101-111) mmol/L Carbon Dioxide 20 L (21-32) mmol/L Anion Gap 9.0 (6-13) BUN 8 (6-20) mg/dL Creatinine 0.5 L (0.6-1.3) mg/dL Estimated GFR (MDRD) 152 (>89) Glucose 109 H (74-104) mg/dL Calcium 8.7 (8.5-10.3) mg/dL Total Bilirubin 0.3 (0.2-1.0) mg/dL AST 15 (10-42) IU/L ALT 8 L (10-60) IU/L Alkaline Phosphatase 125 H (42-121) IU/L Total Protein 6.7 (6.4-8.9) g/dL Albumin 3.5 (3.2-5.5) g/dL Globulin 3.2 (2.1-4.2) g/dL Albumin/Globulin Ratio 1.1 (1.0-2.2) Urine Creatinine 30.8 mg/dL Ur Total Protein Timed 4 mg/dL Protein/Creatinin Ratio 0.1 (<=0.2) Blood Type O POSITIVE Antibody Screen NEGATIVE
[2024-06-04] MEDS: DOXYLAMINE 25 MG TABLET PO PRN (21:12)
--- NOTE | 2024-06-05 13:58 | PROVIDER PROGRESS NOTE ---
Labor Progress Note Labor Progress Note Labor Progress Note/Additional Text: S/O: Resting in bed. Has been actively moving and working with team on spinning babies positioning. Increasing discomfort after 6 doses of 50mcg buccal misoprostol, rating pain a 7/10vps but not yet breathing through contractions. Feeling significant pressure in her lower back and buttock during contractions. Got some rest last night, but woke up frequently to void or if a position of discomfort. Coping well, understands situation after our discussions, fells well informed. FHR baseline 130-140, moderate variability, + accels, no significant decels. Overall reassuring with moderate variability maintained throughout. Contractions palpate mild intermittently with soft resting tone. Contractions 1- 5 minutes. SVE 2.5/70/-2, midposition, Vertex. Membranes intact. Membranes effectively swept. A/P: 24yo @ 37+6 wks gestation by LMP c/w 11 wk U/S Elective IOL FHR Category I Gestational hypertension GBS neg Initiate pitocin now for induction of labor to initiate at 2mU/mL with titration per protocol. Continuous monitoring. Epidural per maternal request. Continue to encourage ambulation and position changes as guided by wonderful RN team. Reviewed plan of care with breanne physician Anticipate
[2024-06-05] MEDS: OXYTOCIN/SODIUM CHLORIDE 500 ML IV SCH (14:00)
[2024-06-05] MEDS: LACTATED RINGERS 1,000 ML IV PRN (14:01)
[2024-06-05] MEDS ORDERED: ROPIVACAINE 0.2% 200 MG/100 ML BAG EP ONE (17:52)
--- NOTE | 2024-06-05 17:57 | PROVIDER PROGRESS NOTE ---
Labor Progress Note Labor Progress Note Labor Progress Note/Additional Text: Getting more uncomfortable although minimal cervical change. Shaking and breathing through contractions. Now on 8mu/min of pitocin. AROM/clear fluid. Desiring an epidural. Will plan to continue to titrate pitocin after comfortable with the epidural.
[2024-06-05] MEDS ORDERED: METOCLOPRAMIDE 10 MG/2 ML VIAL IVP PRN (18:38)
[2024-06-05] MEDS ORDERED: ePHEDrine 50 MG/ML VIAL IVP PRN (18:38)
[2024-06-05] MEDS ORDERED: diphenhydrAMINE INJ 50 MG/ML VIAL IVP PRN (18:38)
[2024-06-05] MEDS ORDERED: ONDANSETRON 4 MG/2 ML VIAL IVP PRN (18:38)
[2024-06-05] MEDS ORDERED: LACTATED RINGERS 500 ML IV ONE (18:38)
[2024-06-05] MEDS ORDERED: NALBUPHINE 10 MG/ML AMP IVP PRN (18:38)
[2024-06-05] MEDS ORDERED: NALOXONE 0.4 MG/ML VIAL IVP PRN (18:38)
--- NOTE | 2024-06-05 23:44 | MISCELLANEOUS PROVIDER NOTE ---
Miscellaneous Provider Note - Note: Patient with c/o R sided pain with contractions. Now dilated to 8cm. Able to move B LE, sensory at T8. Dosed with 10cc 1%Lido with epi. Pump settings remain the same.
[2024-06-06] MEDS: ROPIVACAINE 0.2% 200 MG/100 ML BAG EP PRN (02:04)
[2024-06-06] MEDS: TRANEXAMIC ACID IN NACL 1,000 MG/100 ML BAG IV PRN (02:41)
[2024-06-06] MEDS: ONDANSETRON 4 MG/2 ML VIAL IVP PRN (03:23)
[2024-06-06] MEDS ORDERED: LABETALOL 5 MG/1 ML 20 ML MDV IVP PRN (03:37)
[2024-06-06] MEDS ORDERED: OXYTOCIN/SODIUM CHLORIDE 500 ML IV PRN (03:37)
[2024-06-06] MEDS ORDERED: hydrALAZINE INJ 20 MG/ML VIAL IVP PRN ×2 (03:37)
[2024-06-06] MEDS ORDERED: LABETALOL 20 MG/4 ML SYRINGE IVP PRN ×2 (03:37)
[2024-06-06] MEDS ORDERED: SIMETHICONE CHEW 80 MG TABLET PO PRN (03:37)
[2024-06-06] MEDS ORDERED: NIFEdipine 10 MG CAPSULE PO PRN (03:37)
[2024-06-06] MEDS ORDERED: NALOXONE 0.4 MG/ML VIAL IVP PRN (03:37)
--- NOTE | 2024-06-06 03:37 | DELIVERY NOTE ---
Delivery Note Delivery Comments (Free Text/Narrative) Delivery Comments (Free Text/Narrative): This 24 -year-old, @ 37+5 weeks gestation presented @ 0900 for medical induction of labor and in good condition. Cervix was 1.5cm/40/-3 and Vertex presentation by michael's and exam. She recieved 6 doses of BC misoprostol for preinduction cervical ripening, followed by oxytocin maxium infusion rate of 14mu/min. Labor was further augmented by AROM. . FHR pattern demonstrated 150's baseline in a category I prior to second stage. Normal labor course. Epidural placed upon maternal request. AROM approximately 1800 on 06/05/2024. She then progressed to complete/complete @ 0155 on 06/07/2023 and stage began @ 0212. : Normal spontaneous vaginal delivery of a viable male infant on 06/06/2024 @ 0238. No nuchal cord. The was placed on maternal abdomen, stimulated, dried and placed skin to skin. Apgars 8 & 9 @ 1 & 5 minutes. The umbilical cord was clamped approximately 3 minutes following delivery as bleeding had increased. It was doubly clamped by delivering provider and cut by FOB. 3VC. Cord blood was obtained. Fundal massage and gently cord traction applied for active management of the third stage, placenta delivered spontaneously and intact and appeared normal @ 0244. Increased bleeding with second degree perineal laceration and hymenal ring. Placenta was not sent to pathology. Pitocin (30U) administered via IV for hemostasis and allowed to run freely. Uterine massage was performed until uterus was deemed firm. weight: 2850g Inspection of the perineum noted a second degree midline laceration, and was the source of increased bleeding. 900cc EBL. The laceration was repaired under epidural anesthesia with running 3-0 vicryl rapide, repaired in standards fashion under sterile conditions. In addition to the pitocin, she received two doses of TXA (1g each). Upon re-inspection the patient was hemostatic. Uterus again massaged and found to be firm. Needle and sponge counts were correct. Uterine fundus firm and there is no excessive bleeding. Tissues well approximated. Skin to skin initiated. Family bonding well. Both mother and baby are in stable condition.
[2024-06-06] MEDS: ACETAMINOPHEN 500 MG TABLET PO PRN ×2 (03:43→08:56)
[2024-06-06] MEDS: IBUPROFEN 600 MG TABLET PO PRN (03:57)
[2024-06-06] MEDS: DOCUSATE SODIUM 100 MG CAPSULE PO SCH (10:26)
--- NOTE | 2024-06-06 13:10 | PROVIDER PROGRESS NOTE ---
Subjective Subjective Subjective: Subjective: Patient reports she is doing well. Comfortable WITHOUT narcotic pain management Lochia appropriate. Denies heavy bleeding. Ambulating. Pelvic and abdominal pain well-controlled. Tolerating oral intake. Diet: Regular. Voiding without difficulty. Passing flatus. Denies BM. Patient is bonding with baby in room. Baby having some temperature and sugar management concerns but managed at this time. Breast feeding going well. Denies feeling lightheaded, dizzy or excessively fatigued. Objective General: Alert, oriented, no apparent distress. Cardiovascular: No edema. Regular rate. Regular rhythm. Lungs: No increased work of breathing. Abdomen: Uterus firm. Below umbilicus. No guarding or rebound tenderness. Extremities: No pain on palpation. Distal pulses intact. Assessment and Plan Day of delivery 24yo s/p 06/06/2024 following medical IOL. Doing well - Routine - Anticipate discharge tomorrow Current Medications Current Medications Current Medications: Current Medications Generic Name Dose Route Start Last Admin Trade Name Freq PRN Reason Stop Dose Admin Acetaminophen 1,000 mg 06/06/24 03:37 06/06/24 08:56 Acetaminophen 500 Mg Tablet PO 1,000 mg Q8HR PRN Administration Mild Pain or Fever>38C(100.4F) Carboprost Tromethamine 250 mcg 06/04/24 09:15 Carboprost Tromethamine 250 Mcg/Ml Vial IM 06/09/24 09:15 Q15M PRN Step 4: Hemorrhage protocol Diphenhydramine HCl 12.5 - 25 mg 06/05/24 18:38 Diphenhydramine Inj 50 Mg/Ml Vial IVP Q6HR PRN ITCHING Docusate Sodium 100 mg 06/06/24 09:00 06/06/24 10:26 Docusate Sodium 100 Mg Capsule PO Not Given BID POLINA Doxylamine Succinate 25 mg 06/04/24 20:55 06/04/24 21:12 Doxylamine 25 Mg Tablet PO 25 mg QPM PRN Administration Insomnia Ephedrine Sulfate 5 mg 06/05/24 18:38 Ephedrine 50 Mg/Ml Vial IVP Q5M PRN For SBP<100;give until SBP>100 Famotidine 10 mg 06/04/24 12:46 Famotidine 20 Mg Tablet PO BID PRN NEEDED PER PROVIDER ORDERS Fentanyl 50 mcg 06/04/24 09:15 Fentanyl 100 Mcg/2 Ml Vial IVP Q1H PRN Severe Pain (Level 7-10) Hydralazine HCl 5 - 20 mg 06/04/24 09:15 Hydralazine Inj 20 Mg/Ml Vial IVP Q20M PRN SBP >160 or DBP >110 Protocol Hydralazine HCl 10 mg 06/04/24 09:15 Hydralazine Inj 20 Mg/Ml Vial IVP 06/09/24 09:15 .ONCE PRN Step 9 of Labetalol protocol Protocol Hydralazine HCl 10 mg 06/06/24 03:37 Hydralazine Inj 20 Mg/Ml Vial IVP .ONCE PRN SBP> or= 160 OR DBP> or= 110 Protocol Hydralazine HCl 5 - 10 mg 06/06/24 03:37 Hydralazine Inj 20 Mg/Ml Vial IVP Q20M PRN SBP >=160 and/or DBP >=110 Protocol Lactated Ringer's 1,000 mls @ 100 mls/hr 06/04/24 09:15 06/06/24 03:58 Lr IV 100 mls/hr .Q10H PRN Administration Save for active labor Oxytocin/Sodium Chloride 500 mls @ 999 mls/hr 06/04/24 09:15 Pitocin/Sodium Chloride IV 06/09/24 09:15 PRN PRN POST- HEMORR PREVENTION Protocol 999 MILLIUNIT/MIN Tranexamic Acid 1,000 mg in 100 mls @ 600 mls/hr 06/04/24 09:15 06/06/24 03:08 Tranexamic 1,000 Mg/100ml-Nacl IV 06/09/24 09:15 600 mls/hr .ONCE PRN Administration EBL >1200mL and within 3hr Oxytocin/Sodium Chloride 500 mls @ 2 mls/hr 06/05/24 14:00 06/06/24 03:09 Pitocin/Sodium Chloride IV Infused TITR POLINA Titration Protocol 2 MILLIUNIT/MIN Ropivacaine 200 mg in 100 mls @ 0 mls/hr 06/05/24 18:38 06/06/24 02:04 Naropin 0.2% EP 10 mls/hr PRN PRN Administration PAIN Protocol Per Protocol Oxytocin/Sodium Chloride 500 mls @ 999 mls/hr 06/06/24 03:37 Pitocin/Sodium Chloride IV PRN PRN POST- HEMORR PREVENTION Protocol 999 MILLIUNIT/MIN Ibuprofen 600 mg 06/06/24 03:37 06/06/24 12:47 Ibuprofen 600 Mg Tablet PO 600 mg Q6HR PRN Administration Moderate Pain (Level 4-6) Labetalol HCl 20 - 80 mg 06/04/24 09:15 Labetalol 20 Mg/4 Ml Syringe IVP Q10M PRN SBP >160 or DBP >110 Protocol Labetalol HCl 20 mg 06/04/24 09:15 Labetalol 20 Mg/4 Ml Syringe IVP 06/09/24 09:15 .ONCE PRN Step 9 of nifedipine protocol Protocol Labetalol HCl 40 mg 06/04/24 09:15 Labetalol 20 Mg/4 Ml Syringe IVP 06/09/24 09:15 .ONCE PRN Step 9 of hydrALAZine protocol Protocol Labetalol HCl 20 - 80 mg 06/06/24 03:37 Labetalol 5 Mg/1 Ml 20 Ml Mdv IVP Q10M PRN SBP> or= 160 OR DBP> or= 110 Protocol Labetalol HCl 20 - 40 mg 06/06/24 03:37 Labetalol 20 Mg/4 Ml Syringe IVP Q10M PRN SBP> or= 160 OR DBP> or= 110 Protocol Labetalol HCl 20 mg 06/06/24 03:37 Labetalol 20 Mg/4 Ml Syringe IVP .ONCE PRN SBP >=160 and/or DBP >=110 Protocol Lidocaine HCl 20 ml 06/04/24 09:15 Lidocaine 1% 20 Ml Mdv ID 06/09/24 09:15 .ONCE PRN PERINEAL REPAIR Methylergonovine Maleate 0.2 mg 06/04/24 09:15 Methylergonovine 0.2 Mg/Ml Vial IM 06/09/24 09:15 .ONCE PRN Step 2: Hemorrhage protocol Metoclopramide HCl 10 mg 06/05/24 18:38 Metoclopramide 10 Mg/2 Ml Vial IVP Q6HR PRN Nausea / Vomiting Misoprostol 800 mcg 06/04/24 09:15 Misoprostol 200 Mcg Tablet BC 06/09/24 09:15 .ONCE PRN Step 3: Hemorrhage protocol Misoprostol 50 mcg 06/04/24 12:00 06/05/24 17:06 Misoprostol 100 Mcg Tablet BC Not Given Q4H POLINA Nalbuphine HCl 2.5 - 5 mg 06/05/24 18:38 Nalbuphine 10 Mg/Ml Amp IVP Q4H PRN ITCHING Naloxone HCl 0.1 mg 06/05/24 18:38 Naloxone 0.4 Mg/Ml Vial IVP Q2M PRN RR<8 Naloxone HCl 0.4 mg 06/06/24 03:37 Naloxone 0.4 Mg/Ml Vial IVP .ONCE PRN Opioid Overdose Nifedipine 10 - 20 mg 06/04/24 09:15 Nifedipine 10 Mg Capsule PO Q20M PRN SBP >160 or DBP >110 Protocol Nifedipine 10 - 20 mg 06/06/24 03:37 Nifedipine 10 Mg Capsule PO Q20M PRN SBP >=160 and/or DBP >=110 Protocol Ondansetron HCl 4 mg 06/04/24 09:15 06/06/24 03:23 Ondansetron 4 Mg/2 Ml Vial IVP 4 mg Q4HR PRN Administration Nausea / Vomiting Ondansetron HCl 4 mg 06/05/24 18:38 Ondansetron 4 Mg/2 Ml Vial IVP Q6HR PRN Nausea / Vomiting Oxytocin 10 unit 06/04/24 09:15 Oxytocin 10 Unit/Ml Vial IM 06/09/24 09:15 .ONCE PRN Step one: If no IV access Simethicone 80 mg 06/06/24 03:37 Simethicone Chew 80 Mg Tablet PO TID PRN Gas Sodium Chloride 10 ml 06/04/24 09:15 06/05/24 09:29 Sodium Chloride Flush 0.9% 10 Ml Syringe IVP 10 ml PRN PRN Administration NEEDED PER PROVIDER ORDERS Objective Vital Signs/Intake & Output Vital Signs: Vital Signs x48h Temp Pulse Resp BP Pulse Ox 06/06/24 09:00 36.5 C 86 17 117/80 96 06/06/24 07:10 96 98 06/06/24 06:45 36.3 C L 06/06/24 06:01 103 H 17 112/67 98 06/06/24 05:30 104 H 17 120/82 98 Intake & Output: Intake & Output 06/03/24 06/04/24 06/05/24 06/06/24 23:59 23:59 23:59 23:59 Intake Total 944 / 944 1051 / 1051 Output Total 75 / 75 450 / 450 Balance 869 / 869 601 / 601 Weight (kg) 224 lb 13.944 oz Lab Results 06/04/24 09:20 06/04/24 09:20
[2024-06-06] MEDS: FAMOTIDINE 20 MG TABLET PO PRN (16:11)
[2024-06-07 06:08] LABS: HCT - HEMATOCRIT 30.3 % (37.0-47.0); HGB - HEMOGLOBIN 9.6 g/dL (12.0-16.0); MEAN CORPUSCULAR HEMOGLOBIN 30.6 pg (27.0-31.0); MEAN CORPUSCULAR HGB CONC 31.7 g/dL (32.0-36.0); MEAN CORPUSCULAR VOLUME 96.5 fL (81.0-99.0); MEAN PLATELET VOLUME 11.1 fL (7.9-10.8); RED BLOOD COUNT 3.14 10^6/uL (4.20-5.40); RED CELL DISTRIBUTION WIDTH 13.6 % (12.0-15.0); WHITE BLOOD COUNT 19.3 x10^3/uL (4.8-10.8)
[2024-06-07 06:22] LABS: ALBUMIN 2.9 g/dL (3.2-5.5); BILIRUBIN,TOTAL 0.2 mg/dL (0.2-1.0); CALCIUM 8.3 mg/dL (8.5-10.3); CREATININE 0.5 mg/dL (0.6-1.3); POTASSIUM 3.7 mmol/L (3.5-4.5); TOTAL PROTEIN 5.7 g/dL (6.4-8.9)
--- NOTE | 2024-06-07 10:05 | PROVIDER PROGRESS NOTE ---
Subjective Subjective Subjective: Subjective: Patient reports she is doing well. Comfortable WITHOUT narcotic pain management Lochia appropriate. Denies heavy bleeding. Ambulating. Pelvic and abdominal pain well-controlled. Tolerating oral intake. Diet: Regular. Voiding without difficulty. Passing flatus. Denies BM. Feels a BM will likely come today. Patient is bonding with baby in room Breast feeding going okay. Has a lot of collostrum but struggling with latching and sustained feedings. Denies feeling lightheaded, dizzy or excessively fatigued. Objective General: Alert, oriented, no apparent distress. Cardiovascular: Trace edema to lower extremities. BP WNL Lungs: No increased work of breathing. Abdomen: Uterus firm. Below umbilicus. No guarding or rebound tenderness. Extremities: No pain on palpation. Distal pulses intact. Repeat preE labs today unremarkable. H&H drop from 12.7/38.8 to 9.6/30.3 day 1. 24 yo s/p 06/07/2024 complicated by a hemorrhage from laceration following MEDICAL IOL, PPD #1 doing well - Routine care - Very tired, feels she needs rest to best care for herself - Feels she could use nursing assistance to help with nursing and self care, desires to stay tonight in the hospital as inpatient. - Anticipate discharge tomorrow Current Medications Current Medications Current Medications: Current Medications Generic Name Dose Route Start Last Admin Trade Name Freq PRN Reason Stop Dose Admin Acetaminophen 1,000 mg 06/06/24 03:37 06/07/24 07:07 Acetaminophen 500 Mg Tablet PO 1,000 mg Q8HR PRN Administration Mild Pain or Fever>38C(100.4F) Docusate Sodium 100 mg 06/06/24 09:00 06/06/24 21:00 Docusate Sodium 100 Mg Capsule PO Not Given BID POLINA Doxylamine Succinate 25 mg 06/04/24 20:55 06/07/24 01:05 Doxylamine 25 Mg Tablet PO 25 mg QPM PRN Administration Insomnia Famotidine 10 mg 06/04/24 12:46 06/06/24 16:11 Famotidine 20 Mg Tablet PO 10 mg BID PRN Administration NEEDED PER PROVIDER ORDERS Hydralazine HCl 5 - 20 mg 06/04/24 09:15 Hydralazine Inj 20 Mg/Ml Vial IVP Q20M PRN SBP >160 or DBP >110 Protocol Hydralazine HCl 10 mg 06/04/24 09:15 Hydralazine Inj 20 Mg/Ml Vial IVP 06/09/24 09:15 .ONCE PRN Step 9 of Labetalol protocol Protocol Hydralazine HCl 10 mg 06/06/24 03:37 Hydralazine Inj 20 Mg/Ml Vial IVP .ONCE PRN SBP> or= 160 OR DBP> or= 110 Protocol Hydralazine HCl 5 - 10 mg 06/06/24 03:37 Hydralazine Inj 20 Mg/Ml Vial IVP Q20M PRN SBP >=160 and/or DBP >=110 Protocol Ibuprofen 600 mg 06/06/24 03:37 06/07/24 01:17 Ibuprofen 600 Mg Tablet PO 600 mg Q6HR PRN Administration Moderate Pain (Level 4-6) Labetalol HCl 20 - 80 mg 06/04/24 09:15 Labetalol 20 Mg/4 Ml Syringe IVP Q10M PRN SBP >160 or DBP >110 Protocol Labetalol HCl 20 mg 06/04/24 09:15 Labetalol 20 Mg/4 Ml Syringe IVP 06/09/24 09:15 .ONCE PRN Step 9 of nifedipine protocol Protocol Labetalol HCl 40 mg 06/04/24 09:15 Labetalol 20 Mg/4 Ml Syringe IVP 06/09/24 09:15 .ONCE PRN Step 9 of hydrALAZine protocol Protocol Labetalol HCl 20 - 80 mg 06/06/24 03:37 Labetalol 5 Mg/1 Ml 20 Ml Mdv IVP Q10M PRN SBP> or= 160 OR DBP> or= 110 Protocol Labetalol HCl 20 - 40 mg 06/06/24 03:37 Labetalol 20 Mg/4 Ml Syringe IVP Q10M PRN SBP> or= 160 OR DBP> or= 110 Protocol Labetalol HCl 20 mg 06/06/24 03:37 Labetalol 20 Mg/4 Ml Syringe IVP .ONCE PRN SBP >=160 and/or DBP >=110 Protocol Nifedipine 10 - 20 mg 06/04/24 09:15 Nifedipine 10 Mg Capsule PO Q20M PRN SBP >160 or DBP >110 Protocol Nifedipine 10 - 20 mg 06/06/24 03:37 Nifedipine 10 Mg Capsule PO Q20M PRN SBP >=160 and/or DBP >=110 Protocol Simethicone 80 mg 06/06/24 03:37 Simethicone Chew 80 Mg Tablet PO TID PRN Gas Sodium Chloride 10 ml 06/04/24 09:15 06/05/24 09:29 Sodium Chloride Flush 0.9% 10 Ml Syringe IVP 10 ml PRN PRN Administration NEEDED PER PROVIDER ORDERS Objective Vital Signs/Intake & Output Vital Signs: Vital Signs x48h Temp Pulse Resp BP Pulse Ox 06/07/24 08:00 36.8 C 89 6 L 109/75 98 Intake & Output: Intake & Output 06/04/24 06/05/24 06/06/24 06/07/24 23:59 23:59 23:59 23:59 Intake Total 944 / 944 1051 / 1051 Output Total 75 75 450 / 450 Balance 869 / 869 601 / 601 Weight (kg) 224 lb 13.944 oz Lab Results 06/07/24 06:01 06/07/24 06:01 Other Labs: Lab Results x24hrs 06/07/24 Range/Units 06:01 WBC 19.3 H (4.8-10.8) x10^3/uL RBC 3.14 L (4.20-5.40) 10^6/uL Hgb 9.6 L (12.0-16.0) g/dL Hct 30.3 L (37.0-47.0) % MCV 96.5 (81.0-99.0) fL MCH 30.6 (27.0-31.0) pg MCHC 31.7 L (32.0-36.0) g/dL RDW 13.6 (12.0-15.0) % Plt Count 173 (130-450) 10^3/uL MPV 11.1 H (7.9-10.8) fL Sodium 137 (135-145) mmol/L Potassium 3.7 (3.5-4.5) mmol/L Chloride 107 (101-111) mmol/L Carbon Dioxide 26 (21-32) mmol/L Anion Gap 4.0 L (6-13) BUN 8 (6-20) mg/dL Creatinine 0.5 L (0.6-1.3) mg/dL Estimated GFR (MDRD) 152 (>89) Glucose 84 (74-104) mg/dL Calcium 8.3 L (8.5-10.3) mg/dL Total Bilirubin 0.2 (0.2-1.0) mg/dL AST 13 (10-42) IU/L ALT 8 L (10-60) IU/L Alkaline Phosphatase 90 (42-121) IU/L Total Protein 5.7 L (6.4-8.9) g/dL Albumin 2.9 L (3.2-5.5) g/dL Globulin 2.8 (2.1-4.2) g/dL Albumin/Globulin Ratio 1.0 (1.0-2.2)
[2024-06-08 05:38] VITALS: BP 118/71; TEMP 98.4; O2SAT 94
--- NOTE | 2024-06-08 11:04 | Discharge Summary ---
Discharge Summary HOSPITAL COURSE Hospital Course: Date of Admission: 06/04/2024 Date of Discharge: 06/08/2024 Diagnosis on Admission: 1. 24 yo @ 37+5 weeks gestation by 11 wk U/S 2. Gestational Hypertension 3. Obesity complicating 4. FHR 140 5. Cat I 6. GBS negative Diagnosis on Discharge: 1. 24yo PPD#2 s/p TSVD viable male infant 2. 900 EBL pp hemorrhage 3. 4. Normal recovery Brief History: She is a patient of [facility] who presented on 06/04/2024 for medical induction of labor secondary to gestational hypertension. Cervix was 1.5/40/-3 and vertex with intact membranes. She received 6 doses of BC misoprostol for pre-induction cervical ripening. Pitocin was initiated for induction of labor with a maximum infusion rate of 14mU/min. Epidural was placed per maternal request. AROM occurred on 06/05/2024 and was noted to be a moderate amount of clear fluid. She spontaneously progressed to deliver a viable male on 06/06/2024 @ 0238. Perineum was noted to have a 2nd degree laceration which was repaired using a 3-[address]-1 needle in standard fashion and under sterile conditions and was the source of increased vaginal bleeding at the time of delivery. Apgars were 8/9 at 1 and 5 minutes respectively. EBL 900mL. She has been doing well in her course. She is ambulating and tolerating a regular diet. She is urinating without difficulty and her lochia is normal. Her pain is well controlled with oral medications. She will be discharged home today on day #2 with instructions to continue taking her vitamin while and to continue taking Ibuprofen and Tylenol over the counter as needed for pain management. She intends to follow up with myself at [facility] in 1 week for routine visit or sooner if needed. She has been given precautions to call if she has any worsening fevers, chills, abdominal pain, increased vaginal bleeding or foul smelling vaginal lochia. Secondary to her admission diagnosis of gestational hypertension she has been given a pre-eclampsia blue band to wear through her 6 weeks course. Physical Exam: Normocephalic, atraumatic. Heart RRR w/o M/G/R, lungs CTAB, abdomen soft and nontender with fundus firm at U-1, perineum intact, light lochia rubra, bilateral LE's no edema. Mood is good. ALLERGIES Allergies Allergy/AdvReac Type Severity Reaction Status Date / Time pineapple Allergy Severe Rash Verified 06/05/24 09:36 MEDICATIONS Ambulatory Orders Medication Instructions Recorded Confirmed vitamins no.159-iron 1 tab PO DAILY 02/27/24 06/04/24 fumarate 28 mg-folic acid 800 mcg tablet ( Vitamin) calcium carbonate (Tums) 300 mg PO BID 03/19/24 06/04/24 famotidine 20 mg tablet (Pepcid) 10 mg PO DAILY 06/04/24 06/04/24 LABS 06/07/24 06:01 06/07/24 06:01 Discharge Plan Discharge Patient Disposition: Home, Self Care Prescriptions: Continued famotidine [Pepcid] 20 mg tablet 10 mg PO DAILY Vitamin 28 mg iron- 800 mcg tablet 1 tab PO DAILY Tums 300 mg (750 mg) tablet,chewable 300 mg PO BID Discontinued metoclopramide HCl 10 MG tablet 10 mg PO Q6H PRN (Reason: nausea or headache) Qty: 20 0RF aspirin [Adult Aspirin Regimen] 81 mg tablet,delayed release (DR/EC) 81 mg PO QDAY Print Language: Bengali Patient Instructions: Vaginal After, , Self Care
--- NOTE | 2024-06-08 13:06 | Labor Flowsheet ---
Labor Flowsheet Datetime Report Generated by CPN: 06/08/2024 13:05 Datetime: 06/08/2024 08:17 VITAL SIGNS NBP Sys/[place]/Mean (mmHg): 123 : 77 : 89 Pulse: 77 Datetime: 06/08/2024 05:35 SpO2 (%): 94 Datetime: 06/06/2024 05:35 Epidural Procedure Other: Cath Removed; Cath Intact Datetime: 06/06/2024 03:04 Membranes Ruptured Date/Time: 06/05/2024 17:43 Amniotic Fluid Amount: Moderate Amniotic Fluid Odor: Normal Datetime: 06/06/2024 02:34 COMMUNICATION Communication: RN at Bedside; Provider at Bedside Datetime: 06/06/2024 02:30 UTERINE ACTIVITY Monitor Mode: External Monitor Interventions for UA: [place] Adjusted Frequency (min): 2-3 Quality: Strong Duration (sec): 50-70 Pattern: Normal: <= 5 Contractions in 10 Minutes Resting Tone (Palpate): Relaxed ASSESSMENT A Monitor Mode: External US FHR Baseline Rate : 150 Variability: Moderate 6-25 bpm Accelerations: 15X15 Decelerations: Early; Variable Comments: pushing Datetime: 06/06/2024 02:15 Pitocin Checklist: At Least 1 Acceleration of 15 bpm x 15 Seconds in 30 Minutes or Adequate Variabi lity; No More than 1 Late Deceleration Occurred in Past 30 Minutes; No More than 5 Uterine Contractio ns in 10 Minutes for any 20 Minute Interval; Uterus Palpates Soft between Contractions Datetime: 06/06/2024 01:55 VAGINAL EXAM Dilatation (cm): 10.0 Station: 1 Datetime: 06/06/2024 01:45 Monitor Interventions for FHR: Ultrasound Adjusted Datetime: 06/06/2024 01:30 Actions for Decelerations: Side to Side Datetime: 06/06/2024 01:24 Patient Position/Activity: Right Lateral Datetime: 06/06/2024 01:23 Stage of : Recovery Provider Notified (Name): Mariah Notification Reason: Status Update; Status; Labor Status Communication Comments: VE, EFM strip reported Datetime: 06/06/2024 01:20 LaborFlag: Labor Datetime: 06/06/2024 00:54 Effacement (%): 100 Exam by: LN Vaginal Bleeding: Normal Show Cervix, Consistency: Soft Cervix, Position: Midposition Datetime: 06/06/2024 00:47 Respirations: 18 Temperature (C): 36.8 Temperature Route: Axillary PAIN Pain Scale: 0 Pain Presence: None/Denies Datetime: 06/06/2024 00:01 Category: Category I Datetime: 06/05/2024 23:35 Anesthesia Comments: extra dose given; tachycardia expected and noted Datetime: 06/05/2024 23:00 FHR Baseline Changes: No Baseline Change Datetime: 06/05/2024 20:01 Vital Sign Comments: b/p lateral side down Pain Type: Cramping; Pressure Pain Location: Abdomen Pain Relief Measures: [employer]ELOPER Use; Comfort Measures Pain Coping: Talking Through Contractions Anesthesia Level Check: T10- Umbilicus Datetime: 06/05/2024 19:19 I/O Interventions: [place] Cath Inserted Datetime: 06/05/2024 19:00 Oxygen Method: Room Air Datetime: 06/05/2024 18:32 MEDICATIONS Pitocin (milliunits): Increased to @ 10 Datetime: 06/05/2024 18:14 Epidural Procedure: Test Dose Datetime: 06/05/2024 18:01 PATIENT CARE IV/Blood Work: IV Infusing per Order Datetime: 06/05/2024 17:57 PROCEDURE TIME OUT Procedure Verify: Correct Patient Identity; Correct Side and Site are Marked; Accurate Procedure Co nsent Form; Agreement on Procedure to be Done; Correct Patient Position; Addressed Need to Administer Antibiotics or Fluids for Irrigation; Safety Precautions Based on Patient History or Medication Use ANESTHESIA Anesthesia Plans: Epidural Epidural Positioning: Sitting Datetime: 06/05/2024 17:50 Pain Assessment Comments: epidural requested Datetime: 06/05/2024 17:44 Vaginal Exam Comments: no cervical change Datetime: 06/05/2024 17:43 Membrane Status: Ruptured Membranes Rupture Method: Artificial Amniotic Fluid Color: Clear Datetime: 06/05/2024 17:30 Contraction Comments: unable to monitor ctx Datetime: 06/05/2024 17:08 Patient Care Comments: sitting at side of bed. Datetime: 06/05/2024 09:29 Cervical Ripening Agents: Cytotec @ Datetime: 06/04/2024 21:00 Hygiene: Complete Bath Datetime: 06/04/2024 15:29 Medication Comments: second dose Datetime: 06/04/2024 09:28 Pain Goal: 7
== END 2024-06-08 13:03 | disposition home or self-care (01) | DRG 807 ==
LOC: WFO 09:08 → FBP 09:12
PROVIDERS: ADMIT Nurse Practitioner; ATTEND Nurse Practitioner